=== PATIENT | female | born 1945 | race Caucasian/White ===

== ENCOUNTER → 2018-10-05 | Day surgery (SDC) | payer OTHER ==
[~2018-10-05] MED LIST: ADVAIR HFA 115-12 G1 INH; ASPIR 8181 M1 PO; COLACE100 MG PO; DICYCLOMINE HCL20 MG PO; FISH OIL 1,001000 M2 PO; HAIR SKIN NAIL1 EACH PO; LASIX 20 MG TAB20 MG PO; LOSARTAN POTAS100 MG PO; NEXIUM40 MG PO; NORCO 5-325 TA1 EACH PO; ONDANSETRON HCL4 M2 PO; SYNTHROID100 MC1 PO; TESSALON PERLE100 MG PO; ZOCOR40 MG PO
[2018-10-05 08:42] LABS: HEMATOCRIT 36.9 % (37.0-47.0); HEMOGLOBIN 12.7 gm/dL (12.0-15.0); MCH 33.2 pg (26.0-34.0); MCHC 34.5 g/dL (28.0-37.0); MCV 96.3 fL (80.0-100.0); MPV 8.9 fl. (7.2-11.1); RBC 3.83 mil/uL (4.20-5.00); RDW-CV 12.7 % (10.5-14.5); WBC 5.1 thou/uL (4.0-11.0)
[2018-10-05 08:58] LABS: CALCIUM 9.3 mg/dL (8.5-10.1); CREATININE 1.2 mg/dL (0.6-1.3); POTASSIUM 4.6 mmol/L (3.5-5.1)
[2018-10-05 09:03] LABS: ALBUMIN 3.8 g/dL (3.4-5.0); TOTAL BILIRUBIN 0.4 mg/dL (<0.1-1.0); TOTAL PROTEIN 7.5 g/dL (6.4-8.2)
--- NOTE | 2018-10-07 08:23 | OP ---
[address] [address] OPERATIVE REPORT Name: AARON EARL Room: [facility]#: [id number] Admission: 10/05/18 Attend Phys: Johnnie Menendez II Discharge: Date of : 41 Report #: [id number] THIS REPORT FOR: //name// CC: Berenice Menendez DATE OF SERVICE: 10/05/2018 Operative Report PREOPERATIVE DIAGNOSIS: Left tibial pilon fracture. POSTOPERATIVE DIAGNOSIS: Left tibial pilon fracture. PROCEDURE: Open reduction and internal fixation of left tibial pilon fracture. SURGEON: Johnnie Menendez II, DO [employer]CH MECH[employer]IC: ISRA Alex ANESTHESIA: Per operative record. ESTIMATED BLOOD LOSS: Minimal. ANTIBIOTICS: Per operative record. DRAINS: None. COMPLICATIONS: None. DISPOSITION: Stable to recovery room. BRIEF HISTORY: The patient was seen in the preoperative area, had been previously seen in the clinic. He did have a CT scan showing a tibial pilon fracture at the most anterior and lateral portion of the tibia with displaced fragments. The patient had been priorly treated with a closed fibular fracture, which will be assessed during the surgery. The patient was consented for this, assumed all risks and wished to proceed. DESCRIPTION OF PROCEDURE: The patient was taken to the operative suite and placed supine on the OR table and given appropriate anesthesia. The patient had a well-padded tourniquet applied to the upper thigh, which was inflated to 300 mmHg after gravity exsanguination for duration of the procedure. The leg was sterilely prepped and draped. Surgery began by anterior incision over the left distal tibia. This was carried down to the subcutaneous tissues. A split was then made between the extensor digitorum and [place] [id number] OPERATIVE REPORT Name: AARON EARL Room: [facility]#: [id number] Admission: 10/05/18 Attend Phys: Johnnie Menendez II Discharge: Date of : 41 Report #: [id number] special care to avoid the neurovascular bundle in this region with blunt dissection and finger dissection. Blunt retractor was then placed along this area. Continued fraying of excess scar tissues were performed down to the anterior lateral tibial fragment. I also found loosening from its previous attachments and reduced in near anatomic fashion to the intra-articular region where it had come from recreating the tibial pilon in near anatomic fashion. This was visualized in both AP and lateral directions to be completely in anatomic alignment. A cotton test was performed intraoperatively to check for the syndesmosis, which was intact. Fibular fracture remained intact throughout the procedure and no further operative treatment was performed of this portion. The plate was then affixed to the anterolateral aspect of the tibia to provide buttress support, as well as graft screw was then placed and locked into the plate in appropriate fashion. The proximal aspect of the plate was then fixed to the tibia in appropriate fashion. Final images were taken, both AP, lateral and mortise directions showing anatomic reduction of the fracture. Final irrigation was then performed. The remaining periosteal portions were placed back over the plate. The extensor retinaculum was then reapproximated and sutured. Skin was then closed utilizing a 0 Vicryl, 2-0 Vicryl and running Monocryl stitch. Dermabond and sterile dressing and posterior splint were applied. The patient transferred to recovery room in stable condition. Counts were correct throughout the procedure. <ELECTRONICALLY SIGNED> By: Johnnie Menendez II, DO 10/07/18 0823 [id number] Menendez II, DO /nt
== END | disposition home or self-care (01) ==
LOC: M.SUR 06:44
PROVIDERS: Orthopaedic Surgery
DX: S82.872A Displaced pilon fracture of left tibia, initial encounter for closed fracture (principal); I10 Essential (primary) hypertension; M19.90 Unspecified osteoarthritis, unspecified site; D64.9 Anemia, unspecified; I48.91 Unspecified atrial fibrillation; M81.0 Age-related osteoporosis without current pathological fracture; E07.9 Disorder of thyroid, unspecified; Z85.3 Personal history of malignant neoplasm of breast; Z79.899 Other long term (current) drug therapy; Z85.820 Personal history of malignant melanoma of skin; Z90.49 Acquired absence of other specified parts of digestive tract; Z98.51 Tubal ligation status; Z83.3 Family history of diabetes mellitus; Z91.041 Radiographic dye allergy status; Z79.82 Long term (current) use of aspirin; Z86.010 Personal history of colon polyps; Z82.49 Family history of ischemic heart disease and other diseases of the circulatory system; X58.XXXA Exposure to other specified factors, initial encounter; Y93.89 Activity, other specified; Y92.89 Other specified places as the place of occurrence of the external cause; Y99.8 Other external cause status